=== PATIENT | male | born 1965 | race Caucasian/White ===

== ENCOUNTER 2021-11-24 08:45 | Emergency (ER) | payer BC ==
[2021-11-24 09:02] VITALS: RESP 18; TEMP 98
[2021-11-24] MEDS ORDERED: HYDROmorphone 0.5 MG/0.5 ML SYRINGE IVP STA (09:20)
[2021-11-24] MEDS ORDERED: KETOROLAC 15 MG/ML 1 ML VIAL IVP STA ×2 (09:20→11:07)
[2021-11-24] MEDS ORDERED: ORPHENADRINE 30 MG/ML 2 ML VIAL IVP STA (09:20)
[2021-11-24] MEDS ORDERED: ONDANSETRON 4 MG/2 ML VIAL IVP STA (09:20)
--- NOTE | 2021-11-24 10:11 | ED ---
Back Pain HPI - General Chief Complaint: Back Pain/Injury Stated Complaint: back & testicular pain Time Seen by Provider: 11/24/21 09:03 Source: patient, family, RN notes reviewed Mode of arrival: ambulatory Limitations: no limitations - History of Present Illness Initial Comments: this a 56-year-old male presents emergency Department with chief complaint low back pain times one week. Patient states that he has seen his PCP for this with this complaint of left low back, left hip pain. Patient was started on a steroid muscle relaxer. Patient has not been helping he did present to another ER facility and was worked up for abdominal pain. Patient states he had negative workup with no acute findings. Patient states he is having worsening pain rating from his low back to his groin into his scrotum no paresthesias no focal weakness states he has increasing pain with twisting bending and movement of the left leg he states it is not weak feeling there is no discoloration he denies fevers or chills. Patient offers no other complaints. - Related Data Previous Rx's Medication Instructions Recorded Cyclobenzaprine [Flexeril] 10 mg PO TID PRN #15 tab 11/24/21 predniSONE 50 mg PO DAILY #5 tab 11/24/21 Allergies Allergy/AdvReac Type Severity Reaction Status Date / Time No Known Allergies Allergy Verified 11/24/21 09:02 Review of Systems ROS Statement: Those systems with pertinent positive or pertinent negative responses have been documented in the HPI. ROS Other: All systems not noted in ROS Statement are negative. Past Medical History Past Medical History: No Reported History History of Any Multi-Drug Resistant Organisms: None Reported Past Surgical History: Orthopedic Surgery Past Psychological History: No Psychological Hx Reported Smoking Status: Never smoker Past Alcohol Use History: None Reported Past Drug Use History: None Reported General Exam Limitations: no limitations General appearance: alert, in no apparent distress Head exam: Present: atraumatic, normocephalic, normal inspection Eye exam: Present: normal appearance, PERRL, EOMI. Absent: scleral icterus, conjunctival injection, periorbital swelling ENT exam: Present: normal exam, normal oropharynx, mucous membranes moist Neck exam: Present: normal inspection, full ROM. Absent: tenderness, meningismus, lymphadenopathy Respiratory exam: Present: normal lung sounds bilaterally. Absent: respiratory distress, wheezes, rales, rhonchi, stridor Cardiovascular Exam: Present: regular rate, normal rhythm, normal heart sounds. Absent: systolic murmur, diastolic murmur, rubs, gallop, clicks GI/Abdominal exam: Present: soft, normal bowel sounds. Absent: distended, tenderness, guarding, rebound, rigid Extremities exam: Present: normal inspection, full ROM, normal capillary refill. Absent: tenderness, pedal edema, joint swelling, calf tenderness Back exam: Present: full ROM, tenderness, paraspinal tenderness. Absent: CVA tenderness (R), CVA tenderness (L) Course Vital Signs 11/24/21 08:56 Temperature 98.0 F Pulse Rate 70 Respiratory 18 Rate Blood Pressure 151/114 O2 Sat by Pulse 96 Oximetry Medical Decision Making - Medical Decision Making 56-year-old male presented for low back pain pain radiating towards the groin CT shows evidence of severe degenerative changes, bulging disc. Patient's has no red flag symptoms. He will follow-up with back surgery return parameters were discussed. Disposition Clinical Impression: Bulging lumbar disc, Lumbar radiculopathy Disposition: HOME SELF-CARE Condition: Stable Instructions (If sedation given, give patient instructions): Acute Low Back Pain (ED) Additional Instructions: Please return to the Emergency Department if symptoms worsen or any other concerns. Prescriptions: Cyclobenzaprine [Flexeril] 10 mg PO TID PRN #15 tab PRN Reason: Muscle Spasm predniSONE 50 mg PO DAILY #5 tab Is patient prescribed a controlled substance at d/c from ED?: No Referrals: Frank Rodriguez DO [Primary Care Provider] - 1-2 days Junior Stover DO [Doctor of Osteopathic Medicine] - 1-2 days Weston Mariscal DO [Doctor of Osteopathic Medicine] - 1-2 days Time of Disposition: 11:10
--- NOTE | 2021-11-24 10:15 | CT ---
EXAMINATION TYPE: CT lumbar spine wo con DATE OF EXAM: 11/24/2021 COMPARISON: None HISTORY: 56-year-old male Lumbar pain, denies injury. TECHNIQUE: Contiguous axial scanning of the lumbar spine without IV contrast. Coronal and sagittal re constructions performed. CT DLP: 622.4 mGycm Automated exposure control for dose reduction was used. FINDINGS: Moderate stool burden. Mild diverticular change proximal sigmoid colon. Normal appendix. Hypertrophic facet arthropathy mid to lower lumbar spine. Slight levoconvex curvature of the lumbar s pine. Degenerative grade 1 anterolisthesis L4-L5. Trace grade 1 retrolisthesis T12-L1 and L1-L2. Vertebral body heights are preserved and alignment is maintained. Some degenerative changes at the junction of the L3 and L4 spinous processes suggesting Baastrup's di sease here. Mild multilevel degenerative disc disease with disc bulging throughout. The disc bulges impress on the ventral thecal sac at multiple levels but did not contribute to any si gnificant spinal canal stenosis. On the left, changes result in moderate foraminal stenoses at L4-L5. Mild to moderate at L3-L4 and L5 -S1 and mild at additional levels. On the right, changes result in moderate neural foraminal stenoses at L3-L4 and L4-L5, mild at additi onal levels in the lumbar spine. IMPRESSION: 1. ADVANCED HYPERTROPHIC FACET ARTHROPATHY MID TO LOWER LUMBAR SPINE WITH DEGENERATIVE GRADE 1 VALERIE LISTHESIS AT L4-L5. TRACE GRADE 1 RETROLISTHESIS T12-L1 AND L1-L2. 2. MILD DEGENERATIVE DISC DISEASE WITH BULGING DISC COMPRESSING THE VENTRAL THECAL SAC AT MULTIPLE LE VELS. NO SIGNIFICANT SPINAL CANAL STENOSIS BY CT. 3. THERE ARE VARIABLE NEUROFORAMINAL NARROWINGS OUTLINED ABOVE, MODERATE ON THE LEFT AT L4-L5 AND ON THE RIGHT AT L3-L4 AND L4-L5.
[2021-11-24] MEDS ORDERED: methylPREDNISolone SOD SUCCI 125 MG/2 ML VIAL IV STA (10:58)
[2021-11-24] MEDS ORDERED: HYDROmorphone 1 MG/ML 1 ML SYRINGE IVP STA (11:07)
[2021-11-24] MEDS ORDERED: ACET/COD 300 MG/30 MG STARTER PACK 6 TAB BTL PO STA (11:11)
[2021-11-24 11:33] VITALS: BP 142/90; PULSE 71
== END 2021-11-24 11:33 | disposition home or self-care (01) ==
LOC: EC 08:45
DX: M54.16 Radiculopathy, lumbar region (principal); M51.26 Other intervertebral disc displacement, lumbar region
CPT/HCPCS: 72131; 96374; 96375; 96376; 99284; J2360; J2930; J2405; J1170 ×2; J1885

== ENCOUNTER 2023-12-19 08:36 | Emergency (ER) | payer BC ==
[2023-12-19 08:40] VITALS: TEMP 97.8
[2023-12-19 09:02] VITALS: RESP 20
[2023-12-19] MEDS: SODIUM CHLORIDE 0.9% 1,000 ML IV ONE (09:07)
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
[2023-12-19 09:32] LABS: Lactic Acid, Venous 1.2 mmol/L (0.7-2.0)
[2023-12-19 09:33] LABS: ALT 15 U/L (4-49); AST 28 U/L (17-59); African American GFR (CKD) >90 (>60 ml/min/1.73 sqM); Albumin 4.8 g/dL (3.5-5.0); Alcohol <10 mg/dL; Alkaline Phosphatase 69 U/L (38-126); Anion Gap 8 mmol/L; Blood Urea Nitrogen 21 mg/dL (9-20); Calcium 9.8 mg/dL (8.4-10.2); Carbon Dioxide 27 mmol/L (22-30); Chloride 104 mmol/L (98-107); Glucose 137 mg/dL (74-99); Non-African American GFR(CKD) >90 (>60 ml/min/1.73 sqM); Potassium 3.9 mmol/L (3.5-5.1); Sodium 139 mmol/L (137-145); Total Bilirubin 0.9 mg/dL (0.2-1.3); Total Protein 7.2 g/dL (6.3-8.2)
--- NOTE | 2023-12-19 09:34 | CT ---
EXAMINATION TYPE: CT brain wo con DATE OF EXAM: 12/19/2023 COMPARISON: None HISTORY: hallucinations CT DLP: 1138.[address] of the brain was performed. The ventricles, basal cisterns and sulci overlying the cerebral convexities demonstrate mild enlargem ent. There is no evidence for intracranial hemorrhage or sulcal effacement. There is decreased attenuation about the periventricular white matter and deep white matter of both c erebral hemispheres, compatible with chronic small vessel ischemia. Differential diagnosis does inclu de demyelination. No mass effects are seen.No midline shift. Osseous calvarium is intact. If symptoms persist consider MRI. IMPRESSION: 1. Age related atrophic and chronic small vessel ischemic change without acute intracranial process s een at this time.
[2023-12-19 09:35] LABS: Partial Thromboplastin Time 22.7 sec (22.0-30.0); Prothrombin Time 10.7 sec (10.0-12.5)
--- NOTE | 2023-12-19 09:36 | XR ---
EXAMINATION TYPE: XR chest 2V DATE OF EXAM: 12/19/2023 COMPARISON: NONE TECHNIQUE: PA and lateral views submitted. HISTORY: None FINDINGS: The lungs are clear and there is no pneumothorax, pleural effusion, or focal pneumonia. Heart size normal and no overt failure. Osseous structures demonstrate hypertrophic and degenerative changes of the spine. Hyperinflation suggestive of COPD. IMPRESSION: 1. No acute process.
[2023-12-19 09:49] LABS: Appearance,Urine Cloudy (Clear); Bacteria,Urine Rare /hpf; Bilirubin,Urine Negative (Negative); Blood,Urine Negative (Negative); Budding Yeast,Urine Many /hpf; Color,Urine Light Yellow; Glucose,Urine (UA) Negative (Negative); Hyaline Casts,Urine 7 /lpf (0-2); Ketones,Urine Negative (Negative); Leukocyte Esterase,Urine Negative (Negative); Mucus,Urine Few /hpf; Nitrite,Urine Negative (Negative); PH, Urine 6.5 (5.0-8.0); Protein,Urine Trace (Negative); RBC,Urine <1 /hpf (0-5); Specific Gravity,Urine 1.021 (1.001-1.035); Urobilinogen,Urine <2.0 mg/dL (<2.0); WBC,Urine 4 /hpf (0-5)
[2023-12-19 09:51] LABS: Basophils % (A) 0 %; Eosinophils # (A) 0.2 k/uL (0-0.7); Eosinophils % (A) 2 %; HCT 45.4 % (39.0-53.0); HGB 15.4 gm/dL (13.0-17.5); Lymphocytes # (A) 1.7 k/uL (1.0-4.8); Lymphocytes % (A) 13 %; MCH 32.5 pg (25.0-35.0); MCV 95.6 fL (80.0-100.0); Mean Platelet Volume 6.8; Monocytes # (A) 0.6 k/uL (0-1.0); Monocytes % (A) 4 %; Neutrophils # (A) 10.1 k/uL (1.3-7.7); Neutrophils % (A) 80 %; Platelet Count 343 k/uL (150-450); RBC 4.75 m/uL (4.30-5.90); RDW 12.4 % (11.5-15.5); WBC 12.7 k/uL (3.8-10.6)
[2023-12-19 09:54] LABS: Amphetamine Screen,Urine Not Detected (NotDetected); Barbiturate Screen,Urine Not Detected (NotDetected); Benzodiazepines Screen,Urine Not Detected (NotDetected); Cocaine Screen,Urine Detected (NotDetected); Methadone Screen, Urine Not Detected (NotDetected); Opiate Screen,Urine Not Detected (NotDetected); Oxycodone Screen, Urine Not Detected (NotDetected); Phencyclidine Screen,Urine Not Detected (NotDetected); Tricyclic Antidepressant,Urine Not Detected (NotDetected); Urn Cannabinoid Scrn Detected (NotDetected)
[2023-12-19 12:32] VITALS: BP 120/68; PULSE 85
== END 2023-12-19 12:40 | disposition home or self-care (01) ==
LOC: EC 08:36
DX: F14.151 Cocaine abuse with cocaine-induced psychotic disorder with hallucinations (principal); D72.829 Elevated white blood cell count, unspecified; Z11.52 Encounter for screening for COVID-19
CPT/HCPCS: 36415; 70450; 71046; 80053; 80306; 80320; 81001; 82075; 82140; 83605; 85025; 85610; 85730; 87636; 87651; 93005; 96360; 96361; 99285